=== PATIENT | female | born 1950 | race Two or more races ===

== ENCOUNTER 2022-12-01 09:57 | Inpatient (IN) | payer OTHER ==
[~2022-12-01] VITALS: Ht 152.4 cm; Wt 54.4 kg
[2022-12-01 10:29] LABS: BASOPHILS # (AUTO) 0.1 K/UL (0.0-0.2); BASOPHILS % (AUTO) 0.6 % (0.0-2.0); EOSINOPHILS # (AUTO) 0.1 K/uL (0.0-0.7); EOSINOPHILS % (AUTO) 0.7 % (0.0-7.0); HEMATOCRIT 39.2 % (31.2-41.9); HEMOGLOBIN 12.7 g/dL (10.9-14.3); LYMPHOCYTES # (AUTO) 1.2 K/uL (0.8-4.8); LYMPHOCYTES % (AUTO) 11.1 % (20.5-51.5); MEAN CORPUSCULAR HEMOGLOBIN 28.7 uug (24.7-32.8); MEAN CORPUSCULAR HGB CONC 33 g/dL (32.3-35.6); MEAN CORPUSCULAR VOLUME 88.2 fL (75.5-95.3); MONOCYTES % (AUTO) 9.4 % (0.0-11.0); NEUTROPHILS # (AUTO) 8.4 K/uL (1.8-8.9); NEUTROPHILS % (AUTO) 78.2 % (38.5-71.5); PLATELET COUNT (AUTO) 342 K/uL (179-408); RED BLOOD CELL COUNT(AUTO) 4.44 MIL/uL (3.63-4.92); RED CELL DISTRIBUTION WIDTH 15.2 % (12.3-17.7); WHITE BLOOD COUNT (AUTO) 10.8 K/uL (3.8-11.8)
[2022-12-01] MEDS ORDERED: ONDANSETRON 4 MG/2 ML VIAL IV ONE (10:30)
[2022-12-01] MEDS ORDERED: ONDANSETRON 4 MG/2 ML VIAL ONE (10:34)
[2022-12-01 10:40] LABS: CALCIUM 9.9 mg/dL (8.5-10.1); CARBON DIOXIDE 30 mmol/L (21-32); CHLORIDE 109 mmol/L (98-107); CREATININE 0.7 mg/dL (0.6-1.3); GLUCOSE 132 mg/dL (74-106); POTASSIUM 3.7 mmol/L (3.5-5.1); SODIUM SERUM 146 mmol/L (136-145); UREA NITROGEN, BLOOD 42 mg/dL (7-18)
[2022-12-01 10:45] LABS: DIFFERENTIAL COMMENT 1
[2022-12-01] MEDS ORDERED: MORPHINE SULFATE 2 MG/1 ML DISP.SYRIN ONE (10:45)
[2022-12-01] MEDS ORDERED: MORPHINE SULFATE 2 MG/1 ML DISP.SYRIN IV ONE (10:45)
[2022-12-01 10:57] LABS: ALANINE AMINOTRANSFERASE 33 U/L (14-59); ALBUMIN 2.6 g/dL (3.4-5.0); ALKALINE PHOSPHATASE 88 U/L (50-136); ASPARTATE AMINOTRANSFERASE 23 U/L (15-37); BILIRUBIN,DIRECT 0.3 mg/dL (0.0-0.2); BILIRUBIN,TOTAL 0.7 mg/dL (0.2-1.0); NT-PRO BNP 831 pg/mL (0-125); TOTAL PROTEIN, SERUM 6.9 g/dL (6.4-8.2)
[2022-12-01] MEDS ORDERED: DOCU-141 PO (11:18)
[2022-12-01] MEDS ORDERED: METF-494 PO (11:18)
[2022-12-01] MEDS ORDERED: METO50TA16 PO (11:18)
[2022-12-01] MEDS ORDERED: ERGOCALCIFEROL PO (11:18)
[2022-12-01] MEDS ORDERED: ASPI81TA31 PO (11:18)
[2022-12-01] MEDS ORDERED: CLONIDINE PATCH TD (11:18)
[2022-12-01] MEDS ORDERED: NIFE90TA61 PO (11:18)
[2022-12-01] MEDS ORDERED: SENN8.6T19 PO (11:18)
[2022-12-01] MEDS ORDERED: MEMA10TA PO (11:18)
[2022-12-01] MEDS ORDERED: TRAM100T23 PO (11:18)
[2022-12-01] MEDS ORDERED: MULT-594 PO (11:18)
[2022-12-01] MEDS ORDERED: MELA10CA PO (11:18)
[2022-12-01] MEDS ORDERED: MELO-105 PO (11:18)
[2022-12-01] MEDS ORDERED: ACET325T53 PO (11:18)
[2022-12-01] MEDS ORDERED: METH5TAB34 PO (11:18)
[2022-12-01] MEDS ORDERED: DONE10TA11 PO (11:18)
[2022-12-01] MEDS ORDERED: MAGNESIUM HYDROXIDE 30 ML LIQUID UDC PO PRN (12:00)
[2022-12-01] MEDS ORDERED: ONDANSETRON 4 MG/2 ML VIAL IV PRN (12:00)
[2022-12-01] MEDS ORDERED: REMEDY ESSENTIAL ZINC PASTE 113 GM TP PRN (12:00)
[2022-12-01] MEDS ORDERED: ENOXAPARIN SODIUM 40 MG/0.4 ML DISP.SYRIN SQ SCH ×2 (12:00→21:00)
[2022-12-01] MEDS ORDERED: MORPHINE SULFATE 2 MG/1 ML DISP.SYRIN IV PRN (12:00)
[2022-12-01] MEDS ORDERED: HYDROCODONE/APAP 10-325 MG TABLET PO PRN (12:00)
[2022-12-01] MEDS ORDERED: ACETAMINOPHEN 325 MG TABLET PO PRN (12:00)
[2022-12-01] MEDS ORDERED: IV NORMAL SALINE 500 ML IV ONE (12:00)
[2022-12-01] MEDS ORDERED: ENOXAPARIN SODIUM 40 MG/0.4 ML DISP.SYRIN SQ ONE (12:08)
[2022-12-01] MEDS ORDERED: PANTOPRAZOLE SODIUM 40 MG VIAL ONE (12:08)
[2022-12-01] MEDS: PANTOPRAZOLE SODIUM 40 MG VIAL IV SCH (12:13)
[2022-12-01] MEDS ORDERED: MORPHINE SULFATE 4 MG/1 ML DISP.SYRIN IV PRN (14:15)
[2022-12-01 15:16] VITALS: BP 138/73; TEMP 97.7; O2SAT 97
[2022-12-01] MEDS: IV D5 1/2 NS 1000 ML 1,000 ML IV PRN (15:47)
[2022-12-01] MEDS ORDERED: LORAZEPAM 2 MG/1 ML VIAL IV PRN (16:00)
[2022-12-01 16:02] LABS: *BLOOD, URINE NEGATIVE (NEGATIVE); *CLARITY,URINE CLEAR (CLEAR); *COLOR,URINE YELLOW (YELLOW); *KETONES,URINE NEGATIVE (NEGATIVE); *PROTEIN,URINE NEGATIVE (NEGATIVE); LEUKOCYTE ESTERASE ,URINE NEGATIVE (NEGATIVE); NITRITE, URINE NEGATIVE (NEGATIVE); PH,URINE 5.5 (5.0-8.0); UGLUCOSE NEGATIVE (NEGATIVE)
[2022-12-01 16:05] LABS: *BILIRUBIN,URIN 1+ (NEGATIVE)
[2022-12-01] MEDS ORDERED: ACETAMINOPHEN 325 MG TABLET-SA PATIENTS-PAIN ONLY PO PRN (16:30)
[2022-12-01] MEDS ORDERED: CLON1PAT2 TD (17:06)
[2022-12-01] MEDS: SENNOSIDES 1 TABLET PO SCH (17:28)
[2022-12-01] MEDS: DOCUSATE SODIUM 100 MG CAPSULE PO SCH (17:28)
[2022-12-01] MEDS: DONEPEZIL 10 MG TABLET PO SCH (17:28)
[2022-12-01] MEDS: MEMANTINE HCL 10 MG TABLET PO SCH (17:28)
[2022-12-01 20:30] VITALS: BP 151/71; TEMP 97.5; O2SAT 99
[2022-12-01] MEDS: METOPROLOL TARTRATE 50 MG TABLET PO SCH (21:06)
[2022-12-01 23:09] VITALS: BP 160/73; TEMP 97.5; O2SAT 95
[2022-12-02] VITALS (8 sets, daily range): BP systolic 120–188; BP diastolic 39–77; TEMP 97.5–99; O2SAT 95–98
[2022-12-02] MEDS: IV D5 1/2 NS 1000 ML 1,000 ML IV PRN (04:18)
[2022-12-02 07:35] LABS: BASOPHILS # (AUTO) 0.1 K/UL (0.0-0.2); BASOPHILS % (AUTO) 0.7 % (0.0-2.0); EOSINOPHILS # (AUTO) 0.2 K/uL (0.0-0.7); EOSINOPHILS % (AUTO) 1.2 % (0.0-7.0); HEMATOCRIT 35.5 % (31.2-41.9); HEMOGLOBIN 11.5 g/dL (10.9-14.3); LYMPHOCYTES # (AUTO) 1.2 K/uL (0.8-4.8); LYMPHOCYTES % (AUTO) 9.7 % (20.5-51.5); MEAN CORPUSCULAR HEMOGLOBIN 28.8 uug (24.7-32.8); MEAN CORPUSCULAR HGB CONC 32 g/dL (32.3-35.6); MEAN CORPUSCULAR VOLUME 89.1 fL (75.5-95.3); MONOCYTES # (AUTO) 1.1 K/uL (0.1-1.30); MONOCYTES % (AUTO) 9.2 % (0.0-11.0); NEUTROPHILS # (AUTO) 9.8 K/uL (1.8-8.9); NEUTROPHILS % (AUTO) 79.2 % (38.5-71.5); PLATELET COUNT (AUTO) 317 K/uL (179-408); RED BLOOD CELL COUNT(AUTO) 3.99 MIL/uL (3.63-4.92); RED CELL DISTRIBUTION WIDTH 15.2 % (12.3-17.7); WHITE BLOOD COUNT (AUTO) 12.4 K/uL (3.8-11.8)
[2022-12-02 07:47] LABS: DIFFERENTIAL COMMENT 1
[2022-12-02 07:57] LABS: CREATININE 0.5 mg/dL (0.6-1.3); MAGNESIUM 1.9 mg/dL (1.8-2.4); PHOSPHOROUS 2.2 mg/dL (2.5-4.9); POTASSIUM 3.6 mmol/L (3.5-5.1)
[2022-12-02 08:16] LABS: CALCIUM 9.4 mg/dL (8.5-10.1)
[2022-12-02] MEDS: hydrALAZINE HCL 20 MG/1 ML VIAL IV PRN ×2 (08:26→16:09)
[2022-12-02] MEDS: PANTOPRAZOLE SODIUM 40 MG VIAL IV SCH (08:26)
[2022-12-02] MEDS: MULTIVITAMINS,THERAPEUTIC TABLET PO SCH (09:00)
[2022-12-02] MEDS: NIFEdipine XL 90 MG TABSR PO SCH (09:00)
[2022-12-02] MEDS: METHIMAZOLE 5 MG TABLET PO SCH (09:00)
[2022-12-02] MEDS: MELOXICAM 7.5 MG TABLET PO SCH (09:00)
[2022-12-02] MEDS: ASPIRIN 81 MG TAB.CHEW PO SCH (09:00)
[2022-12-02 09:14] LABS: THYROID STIMULATING HORMONE 0.202 mIU/mL (0.358-3.740)
[2022-12-02] MEDS ORDERED: FENTANYL CITRATE 100 MCG/2 ML AMPUL ONE ×3 (12:22→14:34)
[2022-12-02] MEDS ORDERED: ROCURONIUM BROMIDE 50 MG/5 ML VIAL ONE (12:22)
[2022-12-02] MEDS ORDERED: CEFAZOLIN 1 G VIAL ONE (13:05)
[2022-12-02] MEDS ORDERED: NEOSTIGMINE METHYLSULFATE 10 MG/10 ML VIAL ONE (13:05)
[2022-12-02] MEDS ORDERED: EPHEDRINE SULFATE 50 MG/ML AMPUL ONE (13:05)
[2022-12-02] MEDS ORDERED: DEXAMETHASONE SOD PHOSPHATE 4 MG INJ ONE (13:05)
[2022-12-02] MEDS ORDERED: LIDOCAINE-MPF 2% 5 ML VIAL ONE (13:05)
[2022-12-02] MEDS ORDERED: GLYCOPYRROLATE 0.2 MG/ML VIAL ONE (13:05)
[2022-12-02] MEDS ORDERED: PROPOFOL 200 MG/20 ML BOTTLE ONE (13:05)
[2022-12-02] MEDS ORDERED: ONDANSETRON 4 MG/2 ML VIAL ONE (13:05)
[2022-12-02] MEDS ORDERED: SUCCINYLCHOLINE CHLORIDE 200 MG/10 ML VIAL ONE (13:05)
[2022-12-02] MEDS ORDERED: VANCOMYCIN 1000 MG VIAL ONE (13:45)
[2022-12-02] MEDS: MEMANTINE HCL 10 MG TABLET PO SCH (16:08)
[2022-12-02] MEDS: DOCUSATE SODIUM 100 MG CAPSULE PO SCH ×2 (16:09→17:00)
[2022-12-02] MEDS ORDERED: IV D5W-0.45% NS +20 KCL 1,000 ML IV PRN (16:15)
[2022-12-02] MEDS ORDERED: SODIUM PHOSPHATE MM 15 MMOL in IV NORMAL SALINE 250 ML IV ONE (17:15)
[2022-12-02] MEDS: DONEPEZIL 10 MG TABLET PO SCH (18:09)
[2022-12-02] MEDS: MORPHINE SULFATE 2 MG/1 ML DISP.SYRIN IV PRN (18:09)
[2022-12-02] MEDS: SENNOSIDES 1 TABLET PO SCH (18:09)
[2022-12-02] MEDS: METOPROLOL TARTRATE 50 MG TABLET PO SCH ×2 (20:06→20:07)
[2022-12-02] MEDS: CEFAZOLIN 1 G in IV DEXTROSE 5% 50 ML IV SCH (21:17)
[2022-12-03] VITALS: BP 130/61; TEMP 98; O2SAT 98
[2022-12-03 04:00] VITALS: BP 131/63; TEMP 98.1; O2SAT 97
[2022-12-03] MEDS: CEFAZOLIN 1 G in IV DEXTROSE 5% 50 ML IV SCH (04:32)
[2022-12-03 06:58] LABS: BASOPHILS % (AUTO) 0.1 % (0.0-2.0); EOSINOPHILS # (AUTO) 0.1 K/uL (0.0-0.7); EOSINOPHILS % (AUTO) 0.7 % (0.0-7.0); HEMATOCRIT 32.9 % (31.2-41.9); HEMOGLOBIN 10.9 g/dL (10.9-14.3); LYMPHOCYTES # (AUTO) 0.9 K/uL (0.8-4.8); LYMPHOCYTES % (AUTO) 7.7 % (20.5-51.5); MEAN CORPUSCULAR HEMOGLOBIN 29.2 uug (24.7-32.8); MEAN CORPUSCULAR HGB CONC 33 g/dL (32.3-35.6); MONOCYTES % (AUTO) 8.6 % (0.0-11.0); NEUTROPHILS # (AUTO) 9.7 K/uL (1.8-8.9); NEUTROPHILS % (AUTO) 82.9 % (38.5-71.5); PLATELET COUNT (AUTO) 315 K/uL (179-408); RED BLOOD CELL COUNT(AUTO) 3.74 MIL/uL (3.63-4.92); RED CELL DISTRIBUTION WIDTH 15.2 % (12.3-17.7); WHITE BLOOD COUNT (AUTO) 11.7 K/uL (3.8-11.8)
[2022-12-03 07:07] LABS: CALCIUM 9.3 mg/dL (8.5-10.1); CREATININE 0.5 mg/dL (0.6-1.3); POTASSIUM 3.8 mmol/L (3.5-5.1)
[2022-12-03 07:11] LABS: DIFFERENTIAL COMMENT 1
[2022-12-03 08:00] VITALS: BP 166/58; TEMP 98.4; O2SAT 98
[2022-12-03] MEDS: MEMANTINE HCL 10 MG TABLET PO SCH ×2 (08:26→17:09)
[2022-12-03] MEDS: MELOXICAM 7.5 MG TABLET PO SCH (08:26)
[2022-12-03] MEDS: ASPIRIN 81 MG TAB.CHEW PO SCH (08:26)
[2022-12-03] MEDS: MULTIVITAMINS,THERAPEUTIC TABLET PO SCH (08:26)
[2022-12-03] MEDS: NIFEdipine XL 90 MG TABSR PO SCH (08:26)
[2022-12-03] MEDS: DOCUSATE SODIUM 100 MG CAPSULE PO SCH ×2 (08:26→17:10)
[2022-12-03] MEDS: METHIMAZOLE 5 MG TABLET PO SCH (08:28)
[2022-12-03] MEDS: ENOXAPARIN SODIUM 40 MG/0.4 ML DISP.SYRIN SQ SCH (08:28)
[2022-12-03] MEDS: METOPROLOL TARTRATE 50 MG TABLET PO SCH ×3 (08:28→20:39)
[2022-12-03] MEDS: PANTOPRAZOLE SODIUM 40 MG VIAL IV SCH (08:30)
[2022-12-03 11:20] VITALS: BP 150/64; TEMP 98.4; O2SAT 94
[2022-12-03] MEDS: GLUCERNA SHAKE 237 ML CAN PO SCH ×2 (12:06→17:10)
[2022-12-03 15:04] VITALS: BP 149/42; TEMP 98.5; O2SAT 96
[2022-12-03] MEDS: MORPHINE SULFATE 2 MG/1 ML DISP.SYRIN IV PRN (17:09)
[2022-12-03] MEDS: DONEPEZIL 10 MG TABLET PO SCH (17:09)
[2022-12-03] MEDS: SENNOSIDES 1 TABLET PO SCH (17:09)
[2022-12-03 20:26] VITALS: BP 154/65; TEMP 98.5; O2SAT 95
[2022-12-04 04:02] VITALS: BP 95/62; TEMP 98.4; O2SAT 96
[2022-12-04 05:59] LABS: BASOPHILS % (AUTO) 0.4 % (0.0-2.0); EOSINOPHILS # (AUTO) 0.2 K/uL (0.0-0.7); EOSINOPHILS % (AUTO) 1.5 % (0.0-7.0); HEMATOCRIT 30.1 % (31.2-41.9); HEMOGLOBIN 9.8 g/dL (10.9-14.3); LYMPHOCYTES # (AUTO) 1.1 K/uL (0.8-4.8); LYMPHOCYTES % (AUTO) 9.6 % (20.5-51.5); MEAN CORPUSCULAR HEMOGLOBIN 28.6 uug (24.7-32.8); MEAN CORPUSCULAR HGB CONC 32 g/dL (32.3-35.6); MONOCYTES # (AUTO) 1.1 K/uL (0.1-1.30); MONOCYTES % (AUTO) 9.7 % (0.0-11.0); NEUTROPHILS # (AUTO) 9.1 K/uL (1.8-8.9); NEUTROPHILS % (AUTO) 78.8 % (38.5-71.5); PLATELET COUNT (AUTO) 324 K/uL (179-408); RED BLOOD CELL COUNT(AUTO) 3.42 MIL/uL (3.63-4.92); RED CELL DISTRIBUTION WIDTH 15.8 % (12.3-17.7); WHITE BLOOD COUNT (AUTO) 11.6 K/uL (3.8-11.8)
[2022-12-04 06:00] LABS: DIFFERENTIAL COMMENT 1
[2022-12-04 06:02] LABS: CALCIUM 9.2 mg/dL (8.5-10.1); CREATININE 0.5 mg/dL (0.6-1.3); POTASSIUM 3.6 mmol/L (3.5-5.1)
[2022-12-04] MEDS: MELOXICAM 7.5 MG TABLET PO SCH (08:39)
[2022-12-04] MEDS: ASPIRIN 81 MG TAB.CHEW PO SCH (08:39)
[2022-12-04] MEDS: DOCUSATE SODIUM 100 MG CAPSULE PO SCH ×2 (08:39→17:27)
[2022-12-04] MEDS: MULTIVITAMINS,THERAPEUTIC TABLET PO SCH (08:39)
[2022-12-04] MEDS: MEMANTINE HCL 10 MG TABLET PO SCH ×2 (08:39→17:27)
[2022-12-04] MEDS: NIFEdipine XL 90 MG TABSR PO SCH (08:45)
[2022-12-04] MEDS: METOPROLOL TARTRATE 50 MG TABLET PO SCH ×2 (08:46→20:25)
[2022-12-04] MEDS: ENOXAPARIN SODIUM 40 MG/0.4 ML DISP.SYRIN SQ SCH (08:48)
[2022-12-04] MEDS ORDERED: CLONIDINE TTS 2 PATCH TD SCH (09:00)
[2022-12-04] MEDS ORDERED: GLUCERNA SHAKE 237 ML CAN PO SCH (09:00)
[2022-12-04] MEDS: PANTOPRAZOLE SODIUM 40 MG VIAL IV SCH (09:03)
[2022-12-04] MEDS: METHIMAZOLE 5 MG TABLET PO SCH (09:05)
[2022-12-04] MEDS: GLUCERNA SHAKE 237 ML CAN PO SCH ×2 (09:06→17:27)
[2022-12-04 11:47] VITALS: BP 147/52; TEMP 98.8; O2SAT 99
[2022-12-04] MEDS: HYDROCODONE/APAP 10-325 MG TABLET PO PRN (15:14)
[2022-12-04 16:53] VITALS: BP 158/69; TEMP 98.9; O2SAT 98
[2022-12-04] MEDS: SENNOSIDES 1 TABLET PO SCH (17:27)
[2022-12-04] MEDS: DONEPEZIL 10 MG TABLET PO SCH (17:27)
[2022-12-04 20:26] VITALS: BP 144/60; TEMP 98.4; O2SAT 95
[2022-12-05 04:00] VITALS: BP 156/58; TEMP 98.2; O2SAT 96
[2022-12-05] MEDS: PANTOPRAZOLE SODIUM 40 MG TABLET.DR PO SCH (06:37)
[2022-12-05 07:19] LABS: BASOPHILS # (AUTO) 0.1 K/UL (0.0-0.2); BASOPHILS % (AUTO) 0.6 % (0.0-2.0); EOSINOPHILS # (AUTO) 0.2 K/uL (0.0-0.7); EOSINOPHILS % (AUTO) 1.6 % (0.0-7.0); HEMATOCRIT 30.2 % (31.2-41.9); HEMOGLOBIN 9.8 g/dL (10.9-14.3); LYMPHOCYTES # (AUTO) 1.3 K/uL (0.8-4.8); LYMPHOCYTES % (AUTO) 10.1 % (20.5-51.5); MEAN CORPUSCULAR HEMOGLOBIN 28.8 uug (24.7-32.8); MEAN CORPUSCULAR HGB CONC 33 g/dL (32.3-35.6); MEAN CORPUSCULAR VOLUME 88.2 fL (75.5-95.3); MONOCYTES # (AUTO) 1.2 K/uL (0.1-1.30); MONOCYTES % (AUTO) 9.4 % (0.0-11.0); NEUTROPHILS # (AUTO) 9.9 K/uL (1.8-8.9); NEUTROPHILS % (AUTO) 78.3 % (38.5-71.5); PLATELET COUNT (AUTO) 315 K/uL (179-408); RED BLOOD CELL COUNT(AUTO) 3.42 MIL/uL (3.63-4.92); RED CELL DISTRIBUTION WIDTH 15.9 % (12.3-17.7); WHITE BLOOD COUNT (AUTO) 12.6 K/uL (3.8-11.8)
[2022-12-05 07:34] LABS: CALCIUM 9.1 mg/dL (8.5-10.1); CARBON DIOXIDE 28 mmol/L (21-32); CHLORIDE 106 mmol/L (98-107); CREATININE 0.4 mg/dL (0.6-1.3); GLUCOSE 105 mg/dL (74-106); POTASSIUM 3.5 mmol/L (3.5-5.1); SODIUM SERUM 140 mmol/L (136-145); UREA NITROGEN, BLOOD 16 mg/dL (7-18)
[2022-12-05 07:37] LABS: DIFFERENTIAL COMMENT 1
[2022-12-05] MEDS: MULTIVITAMINS,THERAPEUTIC TABLET PO SCH (08:20)
[2022-12-05] MEDS: NIFEdipine XL 90 MG TABSR PO SCH (08:20)
[2022-12-05] MEDS: ASPIRIN 81 MG TAB.CHEW PO SCH (08:21)
[2022-12-05] MEDS: MELOXICAM 7.5 MG TABLET PO SCH (08:21)
[2022-12-05] MEDS: DOCUSATE SODIUM 100 MG CAPSULE PO SCH ×2 (08:21→16:55)
[2022-12-05] MEDS: METOPROLOL TARTRATE 50 MG TABLET PO SCH ×2 (08:22→21:10)
[2022-12-05] MEDS: MEMANTINE HCL 10 MG TABLET PO SCH ×2 (08:22→16:56)
[2022-12-05] MEDS: ENOXAPARIN SODIUM 40 MG/0.4 ML DISP.SYRIN SQ SCH (08:25)
[2022-12-05] MEDS: METHIMAZOLE 5 MG TABLET PO SCH (08:25)
[2022-12-05] MEDS: GLUCERNA SHAKE 237 ML CAN PO SCH ×2 (09:00→17:00)
[2022-12-05 09:23] VITALS: BP 153/75; O2SAT 95
[2022-12-05 16:03] VITALS: BP 131/62; TEMP 98.2; O2SAT 96
[2022-12-05] MEDS: HYDROCODONE/APAP 10-325 MG TABLET PO PRN (16:55)
[2022-12-05] MEDS: SENNOSIDES 1 TABLET PO SCH (17:09)
[2022-12-05] MEDS: DONEPEZIL 10 MG TABLET PO SCH (17:09)
[2022-12-05 20:02] VITALS: BP 123/60; TEMP 99.2; O2SAT 97
[2022-12-06 04:15] VITALS: BP 150/72; TEMP 98.9; O2SAT 98
[2022-12-06] MEDS: PANTOPRAZOLE SODIUM 40 MG TABLET.DR PO SCH (06:23)
[2022-12-06] MEDS: METOPROLOL TARTRATE 50 MG TABLET PO SCH (08:23)
[2022-12-06] MEDS: MULTIVITAMINS,THERAPEUTIC TABLET PO SCH (08:23)
[2022-12-06] MEDS: NIFEdipine XL 90 MG TABSR PO SCH (08:23)
[2022-12-06] MEDS: ASPIRIN 81 MG TAB.CHEW PO SCH (08:23)
[2022-12-06] MEDS: MEMANTINE HCL 10 MG TABLET PO SCH ×2 (08:24→17:55)
[2022-12-06] MEDS: ENOXAPARIN SODIUM 40 MG/0.4 ML DISP.SYRIN SQ SCH (08:25)
[2022-12-06] MEDS: MELOXICAM 7.5 MG TABLET PO SCH (08:27)
[2022-12-06] MEDS: DOCUSATE SODIUM 100 MG CAPSULE PO SCH ×2 (08:27→17:54)
[2022-12-06] MEDS: GLUCERNA SHAKE 237 ML CAN PO SCH (08:28)
[2022-12-06] MEDS: METHIMAZOLE 5 MG TABLET PO SCH (08:37)
[2022-12-06] MEDS ORDERED: ENOX40DI SQ (10:04)
[2022-12-06 11:30] VITALS: BP 105/52; TEMP 96; O2SAT 97
[2022-12-06 15:44] VITALS: BP 102/60; TEMP 96.4; O2SAT 97
[2022-12-06] MEDS: HYDROCODONE/APAP 10-325 MG TABLET PO PRN (17:49)
[2022-12-06] MEDS: DONEPEZIL 10 MG TABLET PO SCH (17:54)
[2022-12-06] MEDS: SENNOSIDES 1 TABLET PO SCH (17:55)
== END 2022-12-06 18:40 | DRG 308 ==
LOC: ER 09:57 → TRANSITION 13:17 → TELE3 14:17 → MEDSURG3 12-03 08:20
PROVIDERS: ADMIT Nurse Practitioner Acute Care; ATTEND Nurse Practitioner Acute Care
PROC: 0QS606Z Reposition Right Upper Femur with Intramedullary Internal Fixation Device, Open Approach (ICD-10-PCS; principal; 2022-12-02)
DX: S72.141A Displaced intertrochanteric fracture of right femur, initial encounter for closed fracture (principal); I21.4 Non-ST elevation (NSTEMI) myocardial infarction; G93.41 Metabolic encephalopathy; E87.0 Hyperosmolality and hypernatremia; L89.151 Pressure ulcer of sacral region, stage 1; F01.50 Vascular dementia, unspecified severity, without behavioral disturbance, psychotic disturbance, mood disturbance, and anxiety; E11.9 Type 2 diabetes mellitus without complications; D72.829 Elevated white blood cell count, unspecified; K80.20 Calculus of gallbladder without cholecystitis without obstruction; E05.90 Thyrotoxicosis, unspecified without thyrotoxic crisis or storm; I10 Essential (primary) hypertension; Z86.73 Personal history of transient ischemic attack (TIA), and cerebral infarction without residual deficits; R29.6 Repeated falls; X58.XXXA Exposure to other specified factors, initial encounter; Y93.9 Activity, unspecified; Y92.129 Unspecified place in nursing home as the place of occurrence of the external cause
CPT/HCPCS: 36415; 70450; 71045; 72125; 73502; 73503; 83605; 83735; 84100; 84443; 84484; 85025; 85730; 87040; 93005; 93307; A4606; A4663; A6209; A6213; C9113; G0378; J0330; J0360; J0690; J1100; J1650; J2060; J2270; J2405; J3010; J3370; J3490; J7040

== ENCOUNTER 2023-06-29 21:32 | Inpatient (IN) | payer OTHER ==
[~2023-06-29] VITALS: Ht 157.5 cm; Wt 51.9 kg
[~2023-06-29 21:32] MED LIST: ACET325T53 PO; ASCO500C18 GT; ASPI81TA31 PO; CALA177L16 TP; DOCU-141 PO; DONE10TA11 PO; ERGOCALCIFEROL PO; LOSA25TA27 PO; MELA10CA PO; MELO-105 PO; MEMA10TA PO; METF-494 PO; METH5TAB34 PO; METO50TA16 PO; MULT-594 PO; ONDA4TAB5 PO; PANT20TA2 GT; SENN8.6T19 PO; TRAM100T23 PO
[2023-06-29 22:36] LABS: BASOPHILS # (AUTO) 0.1 K/UL (0.0-0.2); BASOPHILS % (AUTO) 0.6 % (0.0-2.0); EOSINOPHILS # (AUTO) 0.1 K/uL (0.0-0.7); EOSINOPHILS % (AUTO) 0.7 % (0.0-7.0); HEMOGLOBIN 14.3 g/dL (10.9-14.3); LYMPHOCYTES # (AUTO) 0.7 K/uL (0.8-4.8); LYMPHOCYTES % (AUTO) 4.7 % (20.5-51.5); MEAN CORPUSCULAR HEMOGLOBIN 29.9 uug (24.7-32.8); MEAN CORPUSCULAR HGB CONC 33 g/dL (32.3-35.6); MONOCYTES # (AUTO) 0.6 K/uL (0.1-1.30); MONOCYTES % (AUTO) 3.7 % (0.0-11.0); NEUTROPHILS # (AUTO) 14.2 K/uL (1.8-8.9); NEUTROPHILS % (AUTO) 90.3 % (38.5-71.5); PLATELET COUNT (AUTO) 277 K/uL (179-408); RED BLOOD CELL COUNT(AUTO) 4.78 MIL/uL (3.63-4.92); WHITE BLOOD COUNT (AUTO) 15.7 K/uL (3.8-11.8)
[2023-06-29 22:47] LABS: DIFFERENTIAL COMMENT 1
[2023-06-29 22:51] LABS: CALCIUM 10.4 mg/dL (8.5-10.1); CARBON DIOXIDE 27 mmol/L (21-32); CHLORIDE 103 mmol/L (98-107); CREATININE 0.6 mg/dL (0.6-1.3); GLUCOSE 142 mg/dL (74-106); POTASSIUM 3.5 mmol/L (3.5-5.1); SODIUM SERUM 139 mmol/L (136-145); UREA NITROGEN, BLOOD 26 mg/dL (7-18)
[2023-06-29] MEDS ORDERED: SENN8.6T19 GT (23:14)
[2023-06-29] MEDS ORDERED: DONE10TA44 GT (23:14)
[2023-06-29] MEDS ORDERED: DOCU100T2 GT (23:14)
[2023-06-29] MEDS ORDERED: MELA5TAB20 GT (23:14)
[2023-06-29] MEDS ORDERED: ONDA4TAB5 GT (23:14)
[2023-06-29] MEDS ORDERED: ACET-3117 GT (23:14)
[2023-06-29] MEDS ORDERED: METH5TAB6 GT (23:14)
[2023-06-29] MEDS ORDERED: METO50TA16 GT (23:14)
[2023-06-29] MEDS ORDERED: MULT-619 GT (23:14)
[2023-06-29] MEDS ORDERED: PANT40TA2 GT (23:14)
[2023-06-29] MEDS ORDERED: LOSA25TA27 GT (23:14)
[2023-06-29] MEDS ORDERED: VANC50SO3 GT (23:14)
[2023-06-29] MEDS ORDERED: MEMA10TA GT (23:14)
[2023-06-29] MEDS ORDERED: ASPI81TA31 GT (23:14)
[2023-06-29 23:17] LABS: ALANINE AMINOTRANSFERASE 18 U/L (14-59); ALBUMIN 3.1 g/dL (3.4-5.0); ALKALINE PHOSPHATASE 165 U/L (50-136); ASPARTATE AMINOTRANSFERASE 15 U/L (15-37); BILIRUBIN,TOTAL 0.3 mg/dL (0.2-1.0); NT-PRO BNP 1683 pg/mL (0-125); TOTAL PROTEIN, SERUM 7.7 g/dL (6.4-8.2)
[2023-06-30] MEDS ORDERED: LORAZEPAM 2 MG/1 ML VIAL ONE (02:04)
[2023-06-30] MEDS ORDERED: GUAIFENESIN/CODEINE 5 ML LIQUID UDC ONE (02:08)
[2023-06-30] MEDS: LORAZEPAM 2 MG/1 ML VIAL IV ONE (02:08)
[2023-06-30] MEDS: GUAIFENESIN/CODEINE 5 ML LIQUID UDC PO ONE (02:20)
[2023-06-30 05:13] LABS: ABG BASE EXCESS 1.4 mmol/L (-2.0-2.0); ABG HCO3 25.1 mmol/L (22.0-26.0); ABG PCO2 36.8 mmHg (35.0-48.0); ABG PH 7.451 (7.340-7.440); ABG PO2 63.3 mmHg (75.0-100.0); ABG SITE LEFT BRACHIAL; ABG TOTAL HEMOGLOBIN 14.9 G/dL (12.0-16.0); AaDO2 93.3 mmHg; COHb 0.8 % (0.0-3.9); MetHb 0.2 % (0.0-1.5)
[2023-06-30] MEDS ORDERED: HYDROCODONE/APAP 5-325MG TABLET PO PRN (10:15)
[2023-06-30] MEDS ORDERED: ONDANSETRON 4 MG/2 ML VIAL IV PRN (10:15)
[2023-06-30] MEDS ORDERED: ZOLPIDEM 5 MG TABLET PO PRN (10:15)
[2023-06-30] MEDS ORDERED: IPRATROPIUM BROMIDE 0.5 MG/2.5 ML NEBU NEB PRN (10:15)
[2023-06-30] MEDS ORDERED: REMEDY ESSENTIAL ZINC PASTE 113 GM TP PRN (10:15)
[2023-06-30] MEDS ORDERED: ACETAMINOPHEN 325 MG TABLET PO PRN (10:15)
[2023-06-30] MEDS: ENOXAPARIN SODIUM 40 MG/0.4 ML DISP.SYRIN SQ SCH (10:15)
[2023-06-30] MEDS ORDERED: ALBUTEROL SULFATE 2.5 MG/3 ML NEBU NEB PRN (10:15)
[2023-06-30] MEDS ORDERED: MAGNESIUM HYDROXIDE 30 ML LIQUID UDC PO PRN (10:15)
[2023-06-30] MEDS ORDERED: ENOXAPARIN SODIUM 40 MG/0.4 ML DISP.SYRIN SQ ONE (11:07)
[2023-06-30 11:21] LABS: THYROID STIMULATING HORMONE 1.149 mIU/mL (0.358-3.740)
[2023-06-30] MEDS: levoFLOXacin 750MG/D5W 750 MG in PREMIXED 1 EACH IV SCH (11:35)
[2023-06-30 19:06] VITALS: BP 178/80; TEMP 97.6; O2SAT 97
[2023-06-30] MEDS: IV 1/2NS 1000 ML 1,000 ML IV PRN (19:30)
[2023-06-30 20:00] VITALS: BP 165/72; TEMP 98.2; O2SAT 98
[2023-06-30] MEDS: GLUCERNA 1.2 1000ML LIQUID GT SCH (21:25)
[2023-06-30 21:26] VITALS: O2SAT 96
[2023-06-30] MEDS: LOSARTAN POTASSIUM 25 MG TABLET GT SCH (21:35)
[2023-06-30] MEDS: METOPROLOL TARTRATE 50 MG TABLET GT SCH (21:35)
[2023-07-01 00:11] VITALS: BP 183/52; TEMP 97.4; O2SAT 98
[2023-07-01 00:33] VITALS: O2SAT 97
[2023-07-01] MEDS: hydrALAZINE HCL 20 MG/1 ML VIAL IV PRN (00:49)
[2023-07-01 04:00] VITALS: BP 120/45; TEMP 97.8; O2SAT 95
[2023-07-01 05:51] LABS: *BILIRUBIN,URIN NEGATIVE (NEGATIVE); *BLOOD, URINE NEGATIVE (NEGATIVE); *COLOR,URINE YELLOW (YELLOW); *KETONES,URINE NEGATIVE (NEGATIVE); *PROTEIN,URINE NEGATIVE (NEGATIVE); *UROBILINOGEN,URINE 0.2 E.U./dl (NORMAL); LEUKOCYTE ESTERASE ,URINE 1+ (NEGATIVE); NITRITE, URINE NEGATIVE (NEGATIVE); UGLUCOSE NEGATIVE (NEGATIVE)
[2023-07-01] MEDS ORDERED: ALBUTEROL SULFATE 2.5 MG/3 ML NEBU NEB PRN (05:58)
[2023-07-01] MEDS: PANTOPRAZOLE SODIUM 40 MG TABLET.DR PO SCH (06:04)
[2023-07-01 06:07] LABS: *CLARITY,URINE HAZY (CLEAR)
[2023-07-01 06:51] LABS: BACTERIA,URINE FEW /HPF (NONE SEEN); SQUAMOUS EPITHELIAL CELL,UR FEW /HPF (NONE SEEN); WBC,URINE 20-50 /HPF (0-3)
[2023-07-01 07:43] LABS: BASOPHILS # (AUTO) 0.1 K/UL (0.0-0.2); EOSINOPHILS # (AUTO) 0.6 K/uL (0.0-0.7); EOSINOPHILS % (AUTO) 6.8 % (0.0-7.0); HEMATOCRIT 38.1 % (31.2-41.9); HEMOGLOBIN 13.1 g/dL (10.9-14.3); LYMPHOCYTES # (AUTO) 1.7 K/uL (0.8-4.8); MEAN CORPUSCULAR HEMOGLOBIN 30.6 uug (24.7-32.8); MEAN CORPUSCULAR HGB CONC 34 g/dL (32.3-35.6); MEAN CORPUSCULAR VOLUME 89.2 fL (75.5-95.3); NEUTROPHILS # (AUTO) 5.7 K/uL (1.8-8.9); NEUTROPHILS % (AUTO) 62.2 % (38.5-71.5); PLATELET COUNT (AUTO) 270 K/uL (179-408); RED BLOOD CELL COUNT(AUTO) 4.27 MIL/uL (3.63-4.92); RED CELL DISTRIBUTION WIDTH 13.6 % (12.3-17.7); WHITE BLOOD COUNT (AUTO) 9.2 K/uL (3.8-11.8)
[2023-07-01 07:54] LABS: DIFFERENTIAL COMMENT 1
[2023-07-01 08:17] LABS: CALCIUM 10.8 mg/dL (8.5-10.1); CREATININE 0.7 mg/dL (0.6-1.3); MAGNESIUM 2.2 mg/dL (1.8-2.4); PHOSPHOROUS 3.7 mg/dL (2.5-4.9)
[2023-07-01 11:11] VITALS: BP 119/41; TEMP 97.6; O2SAT 91
[2023-07-01 15:11] VITALS: BP 159/73; TEMP 98.9; O2SAT 97
[2023-07-01 20:00] VITALS: BP 171/66; TEMP 98; O2SAT 9
[2023-07-02 04:47] VITALS: O2SAT 97
[2023-07-02 06:00] VITALS: BP 167/87; TEMP 97.8; O2SAT 94
[2023-07-02 12:00] VITALS: BP 139/56; TEMP 97.7; O2SAT 96
[2023-07-02 16:27] VITALS: BP 181/64; TEMP 98.2; O2SAT 96
[2023-07-02 21:26] VITALS: BP 149/68; TEMP 98.6; O2SAT 100
[2023-07-03] MEDS: GLUCERNA 1.2 1000ML LIQUID GT PRN (03:04)
[2023-07-03 12:01] VITALS: BP 162/64; TEMP 98.7; O2SAT 92
[2023-07-03 15:40] VITALS: BP 138/66; TEMP 98.3; O2SAT 92
== END 2023-07-03 16:45 | DRG 145 ==
LOC: ER 21:37 → TRANSITION 06-30 09:24 → TELE3 06-30 17:55 → MEDSURG3 07-01 18:20
DX: J20.9 Acute bronchitis, unspecified (principal); L89.151 Pressure ulcer of sacral region, stage 1; F01.50 Vascular dementia, unspecified severity, without behavioral disturbance, psychotic disturbance, mood disturbance, and anxiety; R09.02 Hypoxemia; I11.9 Hypertensive heart disease without heart failure; E03.9 Hypothyroidism, unspecified; M81.0 Age-related osteoporosis without current pathological fracture; R29.6 Repeated falls; Z86.73 Personal history of transient ischemic attack (TIA), and cerebral infarction without residual deficits; E11.9 Type 2 diabetes mellitus without complications; Z79.82 Long term (current) use of aspirin; Z79.84 Long term (current) use of oral hypoglycemic drugs; Z79.899 Other long term (current) drug therapy; R13.10 Dysphagia, unspecified
CPT/HCPCS: 36415; 36600; 71045; 82803; 83605; 83735; 84100; 84443; 84484; 85025; 93005; 93307; A4606; A4663; A6213; G0378; J0360; J1650; J1956; J2060